=== PATIENT | male | born 1940 | race Caucasian/White ===

== ENCOUNTER 2018-02-03 12:29 | Emergency (ER) | payer MEDICARE, OTHER ==
--- NOTE | 2018-02-03 12:33 | EDM.PDOC ---
ED HPI GENERAL MEDICAL PROBLEM - General Chief Complaint: Lower Extremity Injury/Pain Stated Complaint: PAIN IN FOOT Time Seen by Provider: 02/03/18 12:33 Source of Information: Reports: Patient History Limitations: Reports: No Limitations - History of Present Illness INITIAL COMMENTS - FREE TEXT/NARRATIVE: HISTORY AND PHYSICAL: []78-year-old male presenting with bilateral foot painper EMS History of Present Illness: []Patient has history of coronary artery disease diabetes hypertension hyperlipidemia and esophageal Gastro reflux Review of Systems: As per history of present illness and below otherwise all systems reviewed and negative. Past medical history: As per history of present illness and as reviewed below otherwise noncontributory. Surgical history: As per history of present illness and as reviewed below otherwise noncontributory. Social history: No reported history of drug or alcohol abuse. Family history: As per history of present illness and as reviewed below otherwise noncontributory. Physical exam: HEENT: Atraumatic, normocehpalic, pupils reactive, negative for conjunctival pallor or scleral icterus, mucous membranes moist, throat clear, neck supple, nontender, trachea midline. Lungs: Clear to auscultation, breath sounds equal bilaterally, chest non tender. Heart: S1S2, regular, negative for clicks, rubs, or JVD. Abdomen: Soft, nondistended, nontender. Negative for masses or hepatossplenmegaly. Negative for costovertebral tenderness. Pelvis: Stable nontender. Genitourinary: Deferred. Rectal: Deferred Extremities: Atraumatic, negative for cords or calf pain. Neurovascular unremarkable. Neuro: Awake, alert, oriented. Cranial nerves II through XII unremarkable. Cerebellum unremarkable. Motor and sensory unremarkable throughout. Exam nonfocal. Diagnostics: []uric acid Therapeutics: [] Impression: []Gout with elevated uric acid Plan: [Discharged to home Indomethacin Follow-up with Dr. Mayes in 3 days for reevaluation I discussed that your potassium is slightly high stop eating bananas and potatoes and strawberries Have discussed that your knee function is elevated The need to drink more water Return to the emergency room as directed and discussed Definitive disposition and diagnosis as appropriate pending reevaluation and review of above. Onset: Gradual Duration: Day(s): Location: Reports: Lower Extremity, Right Quality: Reports: Ache Severity: Moderate Improves with: Reports: None Worsens with: Reports: None Associated Symptoms: Reports: No Other Symptoms bilateral foot pain Pain Score (Numeric/FACES): 5 - Related Data Allergies Allergy/AdvReac Type Severity Reaction Status Date / Time codeine Allergy Cannot Verified 02/03/18 12:32 Remember Home Meds: Home Meds Blood Pressure Medication 02/03/18 [History] High Cholesterol Medication 02/03/18 [History] Indomethacin 50 mg PO TID #18 capsule 02/03/18 [Rx] Review of Systems - Review of Systems Review Of Systems: ROS reveals no pertinent complaints other than HPI. ED EXAM, GENERAL - Physical Exam Exam: See Below (see dictation) Course - Vital Signs Last Recorded V/S: Last Vital Signs Temp 35.8 C 02/03/18 12:38 Pulse 54 L 02/03/18 12:38 Resp 20 02/03/18 12:38 BP 121/50 L 02/03/18 12:38 Pulse Ox 97 02/03/18 12:38 - Orders/Labs/Meds Orders: Active Orders 24 hr Category Date Time Status Ankle Min 3V Bi [CR] Stat Exams 02/03/18 12:39 Taken Foot 2V Rt [CR] Stat Exams 02/03/18 12:39 Taken Labs: Laboratory Tests 02/03/18 02/03/18 Range/Units 12:47 12:47 WBC 7.44 (4.0-11.0) K/uL RBC 4.15 L (4.50-5.90) M/uL Hgb 12.8 L (13.0-17.0) g/dL Hct 39.3 (38.0-50.0) % MCV 94.7 (80.0-98.0) fL MCH 30.8 (27.0-32.0) pg MCHC 32.6 (31.0-37.0) g/dL RDW Std Deviation 49.3 (28.0-62.0) fl RDW Coeff of Niles 14 (11.0-15.0) % Plt Count 188 (150-400) K/uL MPV 11.40 (7.40-12.00) fL Neut % (Auto) 71.8 (48.0-80.0) % Lymph % (Auto) 19.1 (16.0-40.0) % [place] % (Auto) 7.4 (0.0-15.0) % Eos % (Auto) 1.6 (0.0-7.0) % Baso % (Auto) 0.1 (0.0-1.5) % Neut # (Auto) 5.3 (1.4-5.7) K/uL Lymph # (Auto) 1.4 (0.6-2.4) K/uL [place] # (Auto) 0.6 (0.0-0.8) K/uL Eos # (Auto) 0.1 (0.0-0.7) K/uL Baso # (Auto) 0.0 (0.0-0.1) K/uL Nucleated RBC % 0.0 /100WBC Nucleated RBCs # 0 K/uL Sodium 139 (136-148) mmol/L Potassium 5.3 H (3.5-5.1) mmol/L Chloride 105 (98-107) mmol/L Carbon Dioxide 29.1 (21.0-32.0) mmol/L BUN 36 H (7.0-18.0) mg/dL Creatinine 1.6 H (0.8-1.3) mg/dL Est Cr Clr Drug Dosing 36.15 mL/min Estimated GFR (MDRD) 42.1 ml/min Glucose 217 H (74-106) mg/dL Uric Acid 8.7 H (2.6-7.2) mg/dL Calcium 9.4 (8.5-10.1) mg/dL Total Bilirubin 0.7 (0.2-1.0) mg/dL AST 17 (15-37) IU/L ALT 21 (14-63) IU/L Alkaline Phosphatase 101 (46-116) U/L Total Protein 6.9 (6.4-8.2) g/dL Albumin 2.9 L (3.4-5.0) g/dL Globulin 4.0 H (2.0-3.5) g/dL Albumin/Globulin Ratio 0.7 L (1.3-2.8) Departure - Departure Time of Disposition: 13:54 Disposition: Home, Self-Care 01 Condition: Good Clinical Impression: Gout attack Qualifiers: Gout site: ankle Gout etiology: unspecified cause Laterality: unspecified laterality Qualified Code(s): M10.9 - Gout, unspecified - Discharge Information Prescriptions: Indomethacin 50 mg PO TID #18 capsule Instructions: Low-Purine Eating Plan, Gout Referrals: Julio Cesar Mayes MD [Primary Care Provider] - Forms: ED Department Discharge Additional Instructions: The following information is given to patients seen in the emergency department who are being discharged to home. This information is to outline your options for follow-up care. We provide all patients seen in our emergency department with a follow-up referral. The need for follow-up, as well as the timing and circumstances, are variable depending upon the specifics of your emergency department visit. If you don't have a primary care physician on staff, we will provide you with a referral. We always advise you to contact your personal physician following an emergency department visit to inform them of the circumstance of the visit and for follow-up with them and/or the need for any referrals to a consulting specialist. The emergency department will also refer you to a specialist when appropriate. This referral assures that you have the opportunity for followup care with a specialist. All of these measure are taken in an effort to provide you with optimal care, which includes your followup. Under all circumstances we always encourage you to contact your private physician who remains a resource for coordinating your care. When calling for followup care, please make the office aware that this follow-up is from your recent emergency room visit. If for any reason you are refused follow-up, please contact the [facility] emergency department at and asked to speak to the emergency department charge nurse. Discharged to home Indomethacin Follow-up with Dr. Mayes in 3 days for reevaluation I discussed that your potassium is slightly high stop eating bananas and potatoes and strawberries Have discussed that your knee function is elevated The need to drink more water Return to the emergency room as directed and discussed - My Orders Last 24 Hours: My Active Orders 02/03/18 12:39 Ankle Min 3V Bi [CR] Stat Foot 2V Rt [CR] Stat - Assessment/Plan Last 24 Hours: My Active Orders 02/03/18 12:39 Ankle Min 3V Bi [CR] Stat Foot 2V Rt [CR] Stat
--- NOTE | 2018-02-04 13:46 | CR ---
EXAM DATE: 02/03/18 PATIENT'S AGE: 78 Patient: GRACIA DURON Facility: [place], [place] Site . Site : 1940 Study: XRay Extremity Right foot [id number]/2018 1:10:28 PM Ordering Physician: Doctor Roman Final Report: INDICATION: Pain TECHNIQUE: Two views of the right foot FINDINGS: Normal alignment. Cystic change of the 1st metatarsal probably reflects erosive change. Possible erosive change or subchondral cyst of the proximal 1st phalanx. Soft tissues thickening with g with increased density within the soft tissues at the 1st MTP joint which may represent soft tissue tophus. No fractures. Degenerative change at the MTP joint. IMPRESSION: Cystic change of the 1st metatarsal head probably reflects erosive change. 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 Findings could be related to inflammatory arthropathy such as gout. Dictated by Roxie Murphy MD @ Feb 03 2018 1:25PM (Electronic Signature) Report Signed by Proxy. GI
--- NOTE | 2018-02-04 13:47 | CR ---
EXAM DATE: 02/03/18 PATIENT'S AGE: 78 Patient: GRACIA UDRON Facility: [place], [place] Site . Site : 1940 Study: XRay Extremity Bilateral ankle [id number]/2/2018 1:12:09 PM Ordering Physician: Doctor Roman Final Report: INDICATION: edema/ pain FINDINGS: Three views of the right ankle and 3 views of the left ankle show no evidence of acute fracture or dislocation. Small marginal osteophyte formation at the tibiotalar joints. Right-sided plantar calcaneal spur. Bilateral posterior calcaneal spurs. No other bony or soft tissue abnormalities identified. Dictated by Nilesh Murphy MD @ 02/03/2018 1:31:07 PM Dictated by: Nilesh Murphy MD @ 02/03/2018 13:31:13 (Electronic Signature) Report Signed by Proxy. GI
== END 2018-02-03 14:43 | disposition home or self-care (01) ==
LOC: MW.ED 12:29
DX: M10.9 Gout, unspecified (principal); I25.10 Atherosclerotic heart disease of native coronary artery without angina pectoris; E11.9 Type 2 diabetes mellitus without complications; I10 Essential (primary) hypertension; Z88.5 Allergy status to narcotic agent
CPT/HCPCS: 36415; 736102650; 73610-50; 73620-26-RT; 73620-RT; 80053; 84550; 85025; 99284

== ENCOUNTER 2019-08-09 10:51 | Emergency (ER) | payer MEDICARE, OTHER ==
--- NOTE | 2019-08-09 11:15 | EDM.PDOC ---
ED HPI GENERAL MEDICAL PROBLEM - General Chief Complaint: Cardiovascular Problem Stated Complaint: BLOOD PRESSURE Time Seen by Provider: 08/09/19 10:57 - History of Present Illness INITIAL COMMENTS - FREE TEXT/NARRATIVE: HPI 79-year-old male with history of HTN presents requesting a repeat measurement of his blood pressure as he was unable to measure it at home. Patient reports he a routine physical yesterday and his physician noted that his systolic pressure may be slightly high. The patient was unable to check his pressure home and present to the ED for measurement. Patient denies any symptomatology at the present time. ROS with no recent constitutional symptoms. Exam HR 59, RR 18, BP 123/84, T 36.1C, SaO2 97% on room air. Gen: Pleasant, non-toxic appearing, resting comfortably HEENT: NC, AT, PEERL, EOMI. Resp: Clear to auscultation bilaterally. Unlabored respirations with a normal work of breathing. Card: Regular rate and rhythm. Extremities warm and well perfused. GI: Non-distended. : Deferred MSK: No visible deformities, strength and tone without visually appreciable deficit. Neuro: alert and oriented 3, no facial asymmetry, vision and hearing WNL. Heme/Lymph: Deferred Skin: Normal color with no visible lesions (other than noted above). Psych: Mood and affect appropriate. MDM Previous chart, nursing note, and vitals reviewed. A: 79-year-old male with history of HTN presents requesting a repeat measurement of his blood pressure as he was unable to measure it at home. DDx & Evaluation: vitals within acceptable limits. No features suggestive of end organ dysfunction over acute medical/surgical processes. Patient discharged with routine PCP follow-up recommended. Impression: blood pressure measurement. - Related Data Allergies Allergy/AdvReac Type Severity Reaction Status Date / Time codeine Allergy Cannot Verified 02/03/18 12:32 Remember Home Meds: Home Meds FLUoxetine HCl [Fluoxetine HCl] 20 mg PO DAILY 02/03/18 [History] Indomethacin 50 mg PO TID #18 capsule 02/03/18 [Rx] Isosorbide Mononitrate [Imdur] 60 mg PO DAILY 02/03/18 [History] Lisinopril 20 mg PO DAILY 02/03/18 [History] Metoprolol Tartrate 100 mg PO BID 02/03/18 [History] Omeprazole 20 mg PO DAILY 02/03/18 [History] Pioglitazone [Actos] 15 mg PO DAILY 02/03/18 [History] atorvaSTATin Calcium [Lipitor] 20 mg PO DAILY 02/03/18 [History] hydroCHLOROthiazide [Hydrochlorothiazide] 25 mg PO DAILY 02/03/18 [History] Past Medical History Cardiovascular History: Reports: High Cholesterol, Hypertension - Infectious Disease History Infectious Disease History: Reports: Chicken Pox, Measles, Mumps - Past Surgical History Cardiovascular Surgical History: Reports: Coronary Artery Stent Social & Family History - Family History Family Medical History: Noncontributory - Tobacco Use Smoking Status *Q: Never Smoker - Recreational Drug Use Recreational Drug Use: No ED ROS GENERAL - Review of Systems Review Of Systems: See Below ED EXAM, GENERAL - Physical Exam Exam: See Below Course - Vital Signs Last Recorded V/S: Last Vital Signs Temp 36.1 C 08/09/19 11:01 Pulse 59 L 08/09/19 11:01 Resp 18 08/09/19 11:01 BP 123/84 08/09/19 11:01 Pulse Ox 97 08/09/19 11:01 Departure - Departure Time of Disposition: 11:14 Disposition: Home, Self-Care 01 Clinical Impression: Blood pressure lower than prior measurement Referrals: Julio Cesar Mayes MD [Primary Care Provider] - Additional Instructions: You were in seen in the Emergency Department for evaluation of your blood pressure. Your blood pressure was within acceptable limits. Please read and follow all of the instructions below. Please follow up with your primary care physician as needed. When calling for follow-up care, please make the office aware that this follow-up is from your recent emergency room visit. If for any reason you are refused follow-up, please contact the Emergency Department at and asked to speak to the emergency department charge nurse. Your care today was limited to identifying and treating emergent medical problems only. Many people have subtle differences in their test results that require follow up with their outpatient physician(s) to correctly determine if this represents a normal variation or concerning abnormality with respect to your specific health. The care given to you today was limited to identifying and treating emergent medical problems - you need to request a copy of all of your medical records from today's visit and follow up with your outpatient physician(s) to review both today's visit and your overall health. If you have any new symptoms or if you are at all concerned about your health please return immediately to the emergency department. Prescriptions: If you are uninsured or have financial difficulties with filling your prescription(s), you may consider using a free pharmacy discount service such as [employer] ([employer]) or [employer] ([employer]). These services allow you to search for a medication on your phone (or computer) and obtain a coupon that usually has a significant discount from the list hernandez at a pharmacy. Your physician as well as [facility] does not have a financial relationship with either of these services. You may also wish to speak with your physician to determine if lower cost prescriptions are possible. Obtaining primary care: 1. [facility] provides pediatrics (children), family medicine (children, adults, and some obstetrical care), and internal medicine (adults). Further specialty care is also available. Same day appointments are available. They may be contacted at [phone] and are open Sunday through Sunday 8 AM to [address] [facility] are located at [facility], [address] [place] [address]. 2. [facility] offers family medicine, internal medicine, [facility], and further specialty care. [facility] may be contacted at [phone]. [facility] is located at [address] [facility] [address]. 3. If you have health insurance, please also contact your insurer for a list of accepting providers under your policy, you may contact these providers for further health care. Occupational health: Work related injuries may consider following up with [facility], . Occupational health services are located at [address] [place] [address] and are open Sunday through Sunday from 7: 30 am to 5:00 pm. Obstetrical and Gynecological Care: [facility], , Sunday through Sunday 8 AM to 5 PM. [address] [place] [address]. Eyecare: If you have an eye injury you should follow up with your french lecturer or with [facility], at [phone] or [phone] , they are located at [address] [place] [address]. Dental Care Gordo Ennis DDS. [address] [facility].[place], [place]. Ph. [phone] Tanmay Ennis DDS MS. [address] [facility] [address], [place], [place]. Ph. [phone] Srini Vallecillo DDS. [address] [place] [address]. Ph. [phone] Kirk Koch DDS. [address] [facility] [address] [place], [place]. Ph. [phone] Davian Garcia DDS PC. [address] [facility] [address] [place], [place]. Ph. [phone] Chadwick Leigh DDS. [address] [facility]. Ph. [phone] [facility]. [address] [place], [place]. Ph. [phone] [facility]. [address], [place], [place]. Ph. [phone] [facility] [address] [place] [address]. Ph. [facility]. [address] [place] [address] [address] [place], [place]. Ph. [facility]. [address] [place]. Ph. Sepsis Event Note - Evaluation Sepsis Screening Result: No Definite Risk - Focused Exam Vital Signs: Vital Signs Temp Pulse Resp BP Pulse Ox 08/09/19 11:01 36.1 C 59 L 18 123/84 97 Date Exam was Performed: 08/09/19 Time Exam was Performed: 11:14
== END 2019-08-09 11:39 | disposition home or self-care (01) ==
LOC: MW.ED 10:51
CPT/HCPCS: 99281; 99282

== ENCOUNTER 2022-04-22 20:44 | Emergency (ER) | payer MEDICARE, OTHER ==
[2022-04-22] MEDS ORDERED: Oxymetazoline 0.05% Nasal Spray 30 ML Bottle NAS ONE (21:40)
== END 2022-04-22 22:08 | disposition home or self-care (01) ==
LOC: MW.ED 20:44
DX: R04.0 Epistaxis (principal); E78.00 Pure hypercholesterolemia, unspecified; I10 Essential (primary) hypertension; Z88.5 Allergy status to narcotic agent; Z79.899 Other long term (current) drug therapy
CPT/HCPCS: 99283; A9270